=== PATIENT | female | born 1985 | race Caucasian/White ===

== ENCOUNTER 2018-10-21 20:25 | Emergency (ER) | payer MEDICAID ==
[2018-10-21 21:49] VITALS: BP 127/73
--- NOTE | 2018-10-21 23:41 | RADIOLOGY REPORT (SQ) ---
EXAM DESCRIPTION: XR CHEST 2 VIEWS COMPLETED DATE/TME: 10/21/2018 23:05 CLINICAL HISTORY: 33 years, Female, left armpit "mass" and sob COMPARISON: None. NUMBER OF VIEWS: 2 TECHNIQUE: 2 views of the chest LIMITATIONS: None. FINDINGS: Heart size is normal. Lungs are clear. No pneumothorax IMPRESSION: Negative chest 2010 [facility] [place] Rights [place]
--- NOTE | 2018-10-21 23:48 | ER Document Report ---
ED Skin Rash/Insect Bite/Abscs - General Chief Complaint: Abscess Stated Complaint: POSSIBLE ABSCESS Time Seen by Provider: 10/21/18 23:05 Mode of Arrival: Ambulatory Information source: Patient Notes: Patient is a 33-year old female who presents to the ER today for multiple complaints, shortness of breath times 3 days that feels like a chest tightness. Patient states "it might be my anxiety" patient apparently has a history of anxiety and panic attacks. Patient also complains of a mass to her left armpit that she is noticed for a couple of years but just started being painful this week. She denies any redness, drainage, history of MRSA or abscesses. Patient states that she has a family history of lymphoma and breast cancer and is concerned. TRAVEL OUTSIDE OF THE [place] IN LAST 30 DAYS: No - Related Data Allergies/Adverse Reactions: latex Allergy (Verified 10/22/18 00:36) Past Medical History - General Information source: Patient - Social History Smoking Status: Current Every Day Smoker Frequency of alcohol use: None Drug Abuse: None Family History: Reviewed & Not Pertinent Patient has suicidal ideation: No Patient has homicidal ideation: No Renal/ Medical History: Denies: Hx Peritoneal Dialysis Review of Systems - Review of Systems Constitutional: No symptoms reported EENT: No symptoms reported Cardiovascular: No symptoms reported Respiratory: See HPI Gastrointestinal: No symptoms reported Genitourinary: No symptoms reported Female Genitourinary: No symptoms reported Musculoskeletal: No symptoms reported Skin: See HPI Hematologic/Lymphatic: No symptoms reported Neurological/Psychological: No symptoms reported Physical Exam - Vital signs Vitals: Temp Pulse Resp BP Pulse Ox 98.5 F 65 16 127/73 H 100 10/21/18 21:47 10/21/18 21:47 10/21/18 21:47 10/21/18 21:47 10/21/18 21:47 - Notes Notes: PHYSICAL EXAMINATION: GENERAL: Well-appearing and in no acute distress. HEAD: Atraumatic, normocephalic. EYES: Pupils equal round and reactive to light, extraocular movements intact, sclera anicteric, conjunctiva are normal. NECK: Normal range of motion, supple without lymphadenopathy LUNGS: CTAB and equal. No wheezes rales or rhonchi. HEART: Regular rate and rhythm without murmurs ABDOMEN: Soft, no tenderness. No guarding, no rebound BACK: no vertebral tenderness, normal ROM GI/: no CVA tenderness EXTREMITIES: Normal range of motion, no pitting edema. No cyanosis. NEUROLOGICAL: Cranial nerves grossly intact. Normal sensory/motor exams. PSYCH: Normal mood, normal affect. SKIN: Warm, Dry, normal turgor, no rashes or lesions noted Course - Re-evaluation Re-evalutation: 10/21/18 23:48 Chest x-ray negative for any acute pathology in the lungs or any obvious masses , patient advised that she needs to get a mammogram to further evaluate her painful mass, I do not appreciated on exam at all today. Patient is not short of breath and has normal vitals today. Patient does seem anxious. - Vital Signs Vital signs: Temp Pulse Resp BP Pulse Ox 98.5 F 65 16 127/73 H 100 10/21/18 21:47 10/21/18 21:47 10/21/18 21:47 10/21/18 21:47 10/21/18 21:47 Discharge - Discharge Clinical Impression: Axillary mass, SOB (shortness of breath) Condition: Stable Disposition: HOME, SELF-CARE Additional Instructions: Return immediately for any new or worsening symptoms. Follow up with primary care provider, call tomorrow to make followup appointment. Referrals: [facility] [Provider Group] - Follow up as needed
== END 2018-10-22 00:39 | disposition home or self-care (01) ==
LOC: ER 20:25
DX: R22.32 Localized swelling, mass and lump, left upper limb (principal); R06.02 Shortness of breath; R07.89 Other chest pain; F17.200 Nicotine dependence, unspecified, uncomplicated; Z91.040 Latex allergy status; Z80.3 Family history of malignant neoplasm of breast; Z80.7 Family history of other malignant neoplasms of lymphoid, hematopoietic and related tissues
CPT/HCPCS: 71046; 99283